=== PATIENT | female | born 1935 | race Caucasian/White ===

== ENCOUNTER 2017-05-31 12:57 | Emergency (ER) | payer MEDICARE, BC ==
--- NOTE | 2017-05-31 14:50 | EDM.PDOC ---
ED HPI GENERAL MEDICAL PROBLEM - General Chief Complaint: General Stated Complaint: pain in left rib area Time Seen by Provider: 05/31/17 14:30 Source of Information: Reports: Patient, Family History Limitations: Reports: No Limitations - History of Present Illness INITIAL COMMENTS - FREE TEXT/NARRATIVE: 81-year-old female with a left upper quadrant pain that's been waxing and waning for the past 3 days. No fevers or chills, bowels are moving. No pain with breathing, no recent trauma. Pain was worse this morning and seems to be much better now but still is present. She denies difficulty sleeping. Onset: Gradual (Over the past 3 days) Severity: Moderate Associated Symptoms: Denies: Fever/Chills, Headaches, Nausea/Vomiting, Shortness of Breath - Related Data Allergies Allergy/AdvReac Type Severity Reaction Status Date / Time Sulfa (Sulfonamide Allergy Nausea and Verified 12/29/13 09:26 Antibiotics) Vomiting Home Meds: Home Meds Hydrocodone/Acetaminophen [[place] 10-325] 1 tab PO Q4H PRN 12/29/13 [History] LORazepam [Ativan] 0.5 mg PO BID PRN 12/29/13 [History] Labetalol HCl [Trandate] 100 mg PO BID 12/29/13 [History] Polyethylene Glycol 3350 [MiraLAX] 17 gm PO DAILY 12/29/13 [History] Triamcinolone Acetonide [Kenalog 0.1% Crm] 0.1 percent TOP BID 12/29/13 [History ] Ascorbate Calcium [Vitamin C] 500 mg PO BID 02/12/14 [History] Ferrous Sulfate 325 mg PO BIDM 02/12/14 [History] Calcium Carbonate/Vitamin D3 [Calcium 600 + Vit D 200] 1 each PO BID 02/24/16 [ History] Escitalopram [Lexapro] 10 mg PO DAILY 02/24/16 [History] Fluticasone Propionate [Allergy Relief] 2 spray NS DAILY 02/24/16 [History] rOPINIRole [Requip] 2 mg PO BEDTIME 02/24/16 [History] Pantoprazole [Protonix] 40 mg PO DAILY #30 tab.cr 02/27/16 [Rx] Carvedilol 12.5 mg PO BID 05/31/17 [History] Chlorthalidone 12.5 mg PO DAILY 05/31/17 [History] Furosemide [Lasix] 20 mg PO DAILY 05/31/17 [History] amLODIPine/Benazepril [Lotrel 5-10 MG] 1 tab PO DAILY 05/31/17 [History] hydrOXYzine HCl [hydrOXYzine] 25 mg PO TID PRN 05/31/17 [History] Past Medical History HEENT History: Reports: Cataract, Other (See Below) Other HEENT History: wears glasses Cardiovascular History: Reports: Hypertension Respiratory History: Reports: Other (See Below) Other Respiratory History: allergies Gastrointestinal History: Reports: Other (See Below) Other Gastrointestinal History: colitis 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: Musculoskeletal History: Reports: Arthritis Psychiatric History: Reports: Anxiety, Depression Hematologic History: Reports: Anemia Oncologic (Cancer) History: Reports: Basal Cell Carcinoma - Past Surgical History HEENT Surgical History: Reports: Adenoidectomy, Naso-Sinus Surgery, Visual Female Surgical History: Reports: Hysterectomy Musculoskeletal Surgical History: Reports: Knee Replacement, Shoulder Surgery Social & Family History - Tobacco Use Smoking Status *Q: Never Smoker - Alcohol Use Days Per Week of Alcohol Use: 0 - Recreational Drug Use Recreational Drug Use: No ED ROS GENERAL - Review of Systems Review Of Systems: See Below Constitutional: Denies: Fever, Chills Respiratory: Denies: Shortness of Breath Cardiovascular: Denies: Chest Pain GI/Abdominal: Reports: Abdominal Pain, Constipation (Chronic from pain medication, takes MiraLAX and Colace) : Reports: Flank Pain (Left side) Musculoskeletal: Reports: Back Pain, Other (Patient has bilateral lower extremity edema which is symmetric) Skin: Reports: No Symptoms Psychiatric: Reports: No Symptoms ED EXAM, GENERAL - Physical Exam Exam: See Below Exam Limited By: No Limitations General Appearance: Alert, No Apparent Distress Eye Exam: Bilateral Eye: EOMI, Normal Inspection Respiratory/Chest: No Respiratory Distress, Lungs Clear, Other (some pain with palpation of left lateral lower chest and ribs) Cardiovascular: Regular Rate, Rhythm GI/Abdominal: Soft, Tender (left upper quad area some tenderness, no rebound tenderness) Extremities: Pedal Edema Neurological: Alert, Oriented, No Motor/Sensory Deficits Psychiatric: Anxious Skin Exam: Warm, Dry. No: Rash (no rash or bruising over painful area) Course - Vital Signs Last Recorded V/S: Last Vital Signs Temp 99.0 F 05/31/17 14:24 Pulse 64 05/31/17 15:28 Resp 18 05/31/17 15:28 BP 183/77 H 05/31/17 15:28 Pulse Ox 96 05/31/17 15:28 - Orders/Labs/Meds Orders: Active Orders 24 hr Category Date Time Status Abdomen Pelvis w Cont [CT] Stat Exams 05/31/17 15:34 Taken Labs: Laboratory Tests 05/31/17 05/31/17 05/31/17 Range/Units 15:02 15:02 15:02 WBC 5.9 (4.5-11.0) K/uL RBC 3.80 (3.30-5.50) M/uL Hgb 10.9 L D (12.0-15.0) g/dL Hct 32.4 L (36.0-48.0) % MCV 85 (80-98) fL MCH 29 (27-31) pg MCHC 34 (32-36) % Plt Count 350 (150-400) K/uL Neut % (Auto) 70 H (36-66) % Lymph % (Auto) 14 L (24-44) % [place] % (Auto) 11 H (2-6) % Eos % (Auto) 4 (2-4) % Baso % (Auto) 1 (0-1) % Sodium 130 L (140-148) mmol/L Potassium 4.2 (3.6-5.2) mmol/L Chloride 95 L (100-108) mmol/L Carbon Dioxide 33 H (21-32) mmol/L Anion Gap 6.2 (5.0-14.0) mmol/L BUN 19 H (7-18) mg/dL Creatinine 1.0 D (0.6-1.0) mg/dL Est Cr Clr Drug Dosing 31.69 mL/min Estimated GFR (MDRD) 53 L (>60) Glucose 100 (74-106) mg/dL Calcium 8.8 (8.5-10.1) mg/dL Total Bilirubin 0.2 (0.2-1.0) mg/dL AST 28 (15-37) U/L ALT 30 (12-78) U/L Alkaline Phosphatase 107 (46-116) U/L Total Protein 7.1 (6.4-8.2) g/dL Albumin 3.7 (3.4-5.0) g/dL Globulin 3.4 (2.3-3.5) g/dL Albumin/Globulin Ratio 1.1 L (1.2-2.2) Amylase 42 (25-115) U/L Lipase 115 (73-393) U/L Meds: Medications Discontinued Medications Generic Name Dose Route Start Last Admin Trade Name Freq PRN Reason Stop Dose Admin Hydrocodone Bitart/Acetaminophen 1 tab 05/31/17 16:24 05/31/17 16:32 [place] 325-10 Mg PO 05/31/17 16:25 1 tab ONETIME ONE Administration Sodium Chloride 81 mls @ 3 mls/sec 05/31/17 15:38 05/31/17 16:18 Normal Saline IV 05/31/17 15:39 3 mls/sec ONETIME ONE Administration Iopamidol 136 ml 05/31/17 15:45 05/31/17 16:18 Isovue-300 (61%) IV 150 ml . DIRECTED ASHLYN Administration Sodium Chloride 10 ml 05/31/17 15:38 05/31/17 16:18 Saline Flush FLUSH 10 ml ONETIME PRN Administration PER RADIOLOGY PROTOCOL Departure - Departure Time of Disposition: 17:34 Disposition: Home, Self-Care 01 Condition: Good Clinical Impression: Abdominal pain Qualifiers: Abdominal location: left upper quadrant Qualified Code(s): R10.12 - Left upper quadrant pain - Discharge Information Instructions: Abdominal Pain, Adult Referrals: Ger Parnell MD [Primary Care Provider] - Forms: ED Department Discharge Care Plan Goals: Continue current medications, increase diet and activity as tolerated. Consider rechecking in 2-3 days if symptoms persist or return sooner if worsening or concerns. - My Orders Last 24 Hours: My Active Orders 05/31/17 15:34 Abdomen Pelvis w Cont [CT] Stat - Assessment/Plan Last 24 Hours: My Active Orders 05/31/17 15:34 Abdomen Pelvis w Cont [CT] Stat
[2017-05-31 15:29] VITALS: BP 183/77
[2017-05-31] MEDS ORDERED: Sodium Chloride 0.9% 10 ML Syringe FLUSH PRN (15:38)
[2017-05-31] MEDS ORDERED: Iopamidol 612 MG/ML 150 ML Bottle IV SCH (15:45)
[2017-05-31] MEDS ORDERED: Acetaminophen/HYDROcodone 325-10 MG Tab PO ONE (16:24)
== END 2017-05-31 17:34 | disposition home or self-care (01) ==
LOC: JP.ED 12:57
DX: R10.12 Left upper quadrant pain (principal); I10 Essential (primary) hypertension; M19.90 Unspecified osteoarthritis, unspecified site; F41.9 Anxiety disorder, unspecified; F32.9 Major depressive disorder, single episode, unspecified; Z85.828 Personal history of other malignant neoplasm of skin; Z90.710 Acquired absence of both cervix and uterus; Z98.890 Other specified postprocedural states; Z96.659 Presence of unspecified artificial knee joint; Z79.899 Other long term (current) drug therapy; Z88.2 Allergy status to sulfonamides; Z90.49 Acquired absence of other specified parts of digestive tract
CPT/HCPCS: 36415; 74177; 80053; 82150; 83690; 85025; 99284; A9270; J7030; J7050

== ENCOUNTER 2017-11-26 07:32 | Day surgery (SDC) | payer MEDICARE, BC ==
[2017-11-26] MEDS ORDERED: Lactated Ringers 1,000 ML IV SCH (08:15)
[2017-11-26] MEDS ORDERED: Propofol 200 MG/20 ML SDV ONE ×2 (09:12→09:50)
[2017-11-26] MEDS ORDERED: fentaNYL 100 MCG/2 ML SDV ONE (09:12)
[2017-11-26 12:17] VITALS: BP 152/86
--- NOTE | 2017-11-29 08:04 | OR ---
DATE OF PROCEDURE: 11/26/2017 PREOPERATIVE DIAGNOSES: History of peptic ulcer disease, sensation of feeling full, anemia. POSTOPERATIVE DIAGNOSES: History of peptic ulcer disease, sensation of feeling full, hiatal hernia, mild gastritis, colonic diverticulosis, and anemia, etiology unknown. PROCEDURE: Esophagogastroduodenoscopy with antral biopsies for CLOtest, sent for pathology to look for Helicobacter pylori and colonoscopy to the cecum. SURGEON: Guido Gonzalez MD. ANESTHESIA: IV anesthesia with monitored anesthesia care. INDICATION: This 81-year-old white female is referred for upper and lower endoscopy. Indication for upper endoscopy is a history of peptic ulcer disease. She is taking a proton pump inhibitor. She complains of a feeling of always feeling full. Indication for colonoscopy includes anemia. I counseled her for upper and lower endoscopy with possible biopsy and/or polypectomy including risks and alternatives, and she gave her informed consent to proceed. DESCRIPTION OF PROCEDURE: The patient was placed in the left lateral decubitus position. IV anesthesia was administered by the Anesthesia Service. Time-out was held. The flexible video Olympus upper endoscope was passed through her mouth, down her esophagus, and into her stomach. The scope was easily passed through the pylorus into the duodenum reaching its third portion. The scope was then slowly withdrawn, examining the mucosa throughout. The duodenal mucosa appeared unremarkable. The scope was brought through the pylorus. There was some mild inflammation consistent with mild gastritis, despite being on a proton pump inhibitor. We obtained antral biopsies for CLOtest, sent for pathology to look for Helicobacter pylori. The scope was retroflexed. The proximal stomach appeared to have a hiatal hernia. The scope was straightened and brought up through the hiatal hernia. The GE junction appeared unremarkable. The scope was then brought up through the unremarkable appearing esophagus and was removed. Next, a rectal exam was performed, which was unremarkable. The flexible video Olympus colonoscope was introduced through her anus, up her rectum, out her colon all way to the cecum. To accomplish this, we did have to apply some abdominal compression. Once the cecum was reached, the scope was slowly withdrawn, examining the mucosa throughout. No mucosal abnormalities were noted until we reached the left colon. Here we saw a few scattered diverticula. There was no bleeding or inflammation associated with any of them. The scope was retroflexed in the rectum with the distal rectum appearing unremarkable. The scope was straightened and removed. She tolerated the procedure well. Guido Gonzalez MD /[id number]
== END 2017-11-26 11:45 | disposition home or self-care (01) ==
LOC: JP.SDS 07:32
PROVIDERS: ATTEND Surgery
DX: D64.9 Anemia, unspecified (principal); K29.50 Unspecified chronic gastritis without bleeding; K44.9 Diaphragmatic hernia without obstruction or gangrene; K57.30 Diverticulosis of large intestine without perforation or abscess without bleeding; I50.9 Heart failure, unspecified; K21.9 Gastro-esophageal reflux disease without esophagitis; N28.9 Disorder of kidney and ureter, unspecified; Z88.2 Allergy status to sulfonamides
CPT/HCPCS: 87081; 88305; J2704; J3010

== ENCOUNTER 2018-02-24 01:42 | Emergency (ER) | payer MEDICARE, BC ==
--- NOTE | 2018-02-24 02:59 | EDM.PDOC ---
ED HPI GENERAL MEDICAL PROBLEM - General Chief Complaint: Abdominal Pain Stated Complaint: [facility] Time Seen by Provider: 02/24/18 02:55 Source of Information: Reports: Patient, EMS History Limitations: Reports: No Limitations - History of Present Illness INITIAL COMMENTS - FREE TEXT/NARRATIVE: Pt arrived with upper abdomanal pain. She recently was constipated and she is taking miralax and is having daily bms. Onset: Other (Pt did become quite uncomfortable tonight. ) Duration: Hour(s): Location: Reports: Abdomen Associated Symptoms: Reports: Other (pt did not vomit. ) Treatments PRODUCTION HAND: Reports: Other (see below) Other Treatments PRODUCTION HAND: two lorazepam Abdomen Pain Score (Numeric/FACES): 4 - Related Data Allergies Allergy/AdvReac Type Severity Reaction Status Date / Time Sulfa (Sulfonamide Allergy Nausea and Verified 02/24/18 01:55 Antibiotics) Vomiting Home Meds: Home Meds Hydrocodone/Acetaminophen [[place] 10-325] 10 - 325 mg PO Q4H PRN 12/29/13 [ History] LORazepam [Ativan] 0.5 mg PO BID PRN 12/29/13 [History] Ascorbate Calcium [Vitamin C] 500 mg PO BID 02/12/14 [History] Ferrous Sulfate 325 mg PO BIDM 02/12/14 [History] Calcium Carbonate/Vitamin D3 [Calcium 600 + Vit D 200] 200 - 600 mg PO BID 02/23 [History] Escitalopram [Lexapro] 10 mg PO DAILY 02/24/16 [History] Fluticasone Propionate [Allergy Relief] 2 spray NS DAILY 02/24/16 [History] rOPINIRole [Requip] 2 mg PO BEDTIME 02/24/16 [History] Pantoprazole [Protonix] 40 mg PO DAILY #30 tab.cr 02/27/16 [Rx] Carvedilol 12.5 mg PO BID 05/31/17 [History] Furosemide [Lasix] 20 mg PO DAILY 05/31/17 [History] amLODIPine/Benazepril [Lotrel 5-10 MG] 5 - 10 mg PO DAILY 05/31/17 [History] hydrOXYzine HCl [hydrOXYzine] 25 mg PO TID PRN 05/31/17 [History] Acetaminophen [Tylenol] 650 mg PO Q6HR PRN 11/24/17 [History] Aspirin [Adult Low Dose Aspirin EC] 81 mg PO DAILY 11/24/17 [History] Clotrimazole/Betamethasone Dip [Lotrisone Cream] 1 film TOP BID 11/24/17 [ History] Fexofenadine [Makenna] 180 mg PO DAILY 11/24/17 [History] Sennosides/Docusate Sodium [Senna-Docusate Sodium Tablet] 1 tab PO BID 11/24/17 [History] Polyethylene Glycol 3350 [MiraLAX] 17 gm PO DAILY 02/24/18 [History] Simethicone [Gas Relief] 160 mg PO TID 02/24/18 [History] Past Medical History HEENT History: Reports: Cataract, Other (See Below) Other HEENT History: wears glasses Cardiovascular History: Reports: Hypertension Respiratory History: Reports: Pneumonia, Recurrent, Other (See Below) Other Respiratory History: allergies Gastrointestinal History: Reports: Gastritis, GERD, Other (See Below) Other Gastrointestinal History: colitis Genitourinary History: Reports: None [employer]IL [employer]ING [employer]QU[employer]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[employer]IC History: Reports: Endometriosis, Fibroids, , Spontaneous Musculoskeletal History: Reports: Back Pain, Chronic, Fracture, Osteoarthritis Neurological History: Reports: Migraines Psychiatric History: Reports: Anxiety, Depression, Panic Attack Endocrine/Metabolic History: Reports: Obesity/BMI 30+, Vitamin D Deficiency Hematologic History: Reports: Anemia Immunologic History: Reports: None Oncologic (Cancer) History: Reports: Basal Cell Carcinoma Dermatologic History: Reports: None - Infectious Disease History Infectious Disease History: Reports: Chicken Pox, Measles - Past Surgical History HEENT Surgical History: Reports: Adenoidectomy, Naso-Sinus Surgery, Visual Other HEENT Surgeries/Procedures: CA spots removed from removed Cardiovascular Surgical History: Reports: None Respiratory Surgical History: Reports: None GI Surgical History: Reports: Appendectomy, Colonoscopy, EGD Female Surgical History: Reports: Hysterectomy Endocrine Surgical History: Reports: None Neurological Surgical History: Reports: Other (See Below) Other Neurological Surgeries/Procedures: cement upper back #LOI Musculoskeletal Surgical History: Reports: Arthroscopic Knee, Joint Replacement , Knee Replacement, Shoulder Surgery Other Musculoskeletal Surgeries/Procedures:: partial knee replacement left and total knee on right, left ankle hardware Social & Family History - Family History Family Medical History: Noncontributory - Tobacco Use Smoking Status *Q: Never Smoker Second Hand Smoke Exposure: No - Caffeine Use Caffeine Use: Reports: Coffee - Recreational Drug Use Recreational Drug Use: No ED ROS GENERAL - Review of Systems Review Of Systems: See Below Constitutional: Reports: No Symptoms HEENT: Reports: No Symptoms Respiratory: Reports: No Symptoms Cardiovascular: Reports: No Symptoms Endocrine: Reports: No Symptoms GI/Abdominal: Reports: Abdominal Pain, Other (pt had pain accross the upper abdoman. She did pass alot of gas in the ambulance and since she has been here. ) : Reports: No Symptoms Musculoskeletal: Reports: No Symptoms Skin: Reports: No Symptoms Neurological: Reports: No Symptoms ED EXAM, GI/ABD - Physical Exam Exam: See Below Text/Narrative:: pt arrived with pain accross her upper abdoman. She had been passing alot of gas in the ambulance and did feel better. Exam Limited By: No Limitations General Appearance: Alert, Anxious, Moderate Distress Ears: Normal TMs Nose: Normal Inspection Throat/Mouth: Normal Inspection Head: Atraumatic Neck: Normal Inspection Respiratory/Chest: No Respiratory Distress Cardiovascular: Regular Rate, Rhythm GI/Abdominal Exam: Soft, Tender, Other (pt has some tenderness in the upper abdoman. ) (Female) Exam: Deferred Rectal (Female) Exam: Deferred Back Exam: Normal Inspection Extremities: Normal Inspection Neurological: Alert, Oriented, Normal Cognition Psychiatric: Normal Affect Course - Vital Signs Last Recorded V/S: Last Vital Signs Temp 36.7 C 02/24/18 01:48 Pulse 71 02/24/18 03:18 Resp 14 02/24/18 03:18 BP 157/76 H 02/24/18 03:18 Pulse Ox 92 L 02/24/18 03:18 - Orders/Labs/Meds Orders: Active Orders 24 hr Category Date Time Status Abdomen Series w Chest 1V [CR] Urgent Exams 02/24/18 02:34 Ordered CRP [C-REACTIVE PROTEIN] [CHEM] Stat Lab 02/24/18 02:33 Received UA W/MICROSCOPIC [URIN] Urgent Lab 02/24/18 02:22 Ordered Acetaminophen/HYDROcodone [[place] 325-10 MG] Med 02/24/18 03:26 Once 1 tab PO ONETIME ONE Medication Orders Hydrocodone Bitart/Acetaminophen ([place] 325-10 Mg) 1 tab PO ONETIME ONE Stop: 02/24/18 03:27 Labs: Laboratory Tests 02/24/18 02/24/18 02/24/18 Range/Units 02:22 02:33 02:33 WBC 7.9 (4.5-11.0) K/uL RBC 4.25 (3.30-5.50) M/uL Hgb 12.1 (12.0-15.0) g/dL Hct 36.7 (36.0-48.0) % MCV 86 (80-98) fL MCH 29 (27-31) pg MCHC 33 (32-36) % Plt Count 341 (150-400) K/uL Neut % (Auto) 81 H (36-66) % Lymph % (Auto) 8 L (24-44) % [place] % (Auto) 8 H (2-6) % Eos % (Auto) 3 (2-4) % Baso % (Auto) 0 (0-1) % Sodium 134 L (140-148) mmol/L Potassium 4.0 (3.6-5.2) mmol/L Chloride 97 L (100-108) mmol/L Carbon Dioxide 27 (21-32) mmol/L Anion Gap 14.0 (5.0-14.0) mmol/L BUN 18 (7-18) mg/dL Creatinine 1.0 (0.6-1.0) mg/dL Est Cr Clr Drug Dosing 34.30 mL/min Estimated GFR (MDRD) 53 L (>60) Glucose 108 H (74-106) mg/dL Calcium 9.1 (8.5-10.1) mg/dL Total Bilirubin 0.3 (0.2-1.0) mg/dL AST 18 (15-37) U/L ALT 21 (12-78) U/L Alkaline Phosphatase 89 (46-116) U/L Total Protein 6.8 (6.4-8.2) g/dL Albumin 3.9 (3.4-5.0) g/dL Globulin 2.9 (2.3-3.5) g/dL Albumin/Globulin Ratio 1.3 (1.2-2.2) Urine Color Yellow Urine Appearance Clear Urine pH 8.0 (4.5-8.0) Ur Specific [place] 1.010 (1.008-1.030) Urine Protein Negative (NEGATIVE) mg/dL Urine Glucose (UA) Normal (NEGATIVE) mg/dL Urine Ketones Negative (NEGATIVE) mg/dL Urine Occult Blood Negative (NEGATIVE) Urine Nitrite Negative (NEGATIVE) Urine Bilirubin Negative (NEGATIVE) Urine Urobilinogen Normal (NORMAL) mg/dL Ur Leukocyte Esterase Negative (NEGATIVE) Urine RBC 0-5 (0-5) Urine WBC 0-5 (0-5) Ur Epithelial Cells Rare Amorphous Sediment Not seen Urine Bacteria Rare Urine Mucus Not seen Meds: Medications Generic Name Dose Route Start Last Admin Trade Name Freq PRN Reason Stop Dose Admin Hydrocodone Bitart/Acetaminophen 1 tab 02/24/18 03:26 [place] 325-10 Mg PO 02/24/18 03:27 ONETIME ONE Discontinued Medications Generic Name Dose Route Start Last Admin Trade Name Freq PRN Reason Stop Dose Admin Magnesium Citrate 296 ml 02/24/18 03:18 Citrate Of Magnesia PO 02/24/18 03:19 ONETIME ONE - Re-Assessments/Exams Free Text/Narrative Re-Assessment/Exam: 02/24/18 03:14 pt has a clear urine. Her wbc is nornal. Her flat plate of the abdoman shows a fair amount of stool. her crp was .22 02/24/18 03:20 02/24/18 03:28 Departure - Departure Time of Disposition: 03:20 Disposition: Home, Self-Care 01 Condition: Fair Clinical Impression: Constipation, Chronic back pain - Discharge Information Referrals: PCP,None [Primary Care Provider] - Forms: ED Department Discharge Care Plan Goals: Use the mag citrate when she gets home, cont with the miralax. Suggest her getting the shots for her back to relief her back pain. If persistent abdomanal pain would suggest a cat scan of the abdoman. - My Orders Last 24 Hours: My Active Orders 02/24/18 02:22 UA W/MICROSCOPIC [URIN] Urgent 02/24/18 02:33 CRP [C-REACTIVE PROTEIN] [CHEM] Stat 02/24/18 02:34 Abdomen Series w Chest 1V [CR] Urgent 02/24/18 03:26 Acetaminophen/HYDROcodone [[place] 325-10 MG] 1 tab PO ONETIME ONE - Assessment/Plan Last 24 Hours: My Active Orders 02/24/18 02:22 UA W/MICROSCOPIC [URIN] Urgent 02/24/18 02:33 CRP [C-REACTIVE PROTEIN] [CHEM] Stat 02/24/18 02:34 Abdomen Series w Chest 1V [CR] Urgent 02/24/18 03:26 Acetaminophen/HYDROcodone [[place] 325-10 MG] 1 tab PO ONETIME ONE
[2018-02-24] MEDS ORDERED: Magnesium Citrate Solution 296 ML Bottle PO ONE (03:18)
[2018-02-24] MEDS ORDERED: Acetaminophen/HYDROcodone 325-10 MG Tab PO ONE (03:26)
[2018-02-24 03:39] VITALS: BP 157/78
--- NOTE | 2018-02-24 09:36 | CR ---
Abdomen Series w Chest 1V CLINICAL HISTORY: Abdominal pain FINDINGS: There is a right cardiac density consistent with a hiatal hernia. There is some patchy airs pace disease at the left lung base. No free air is identified. There is moderate retained stool throu ghout the colon. Small intestinal gas pattern is nonacute. There is a tiny left paraspinal calcific d ensity near the L3 transverse process. This is not the seen on the upright film. This may be artifact IMPRESSION: Large hiatal hernia. Patchy left basilar density may represent some atelectasis Moderate retained stool Nonacute intestinal gas pattern
== END 2018-02-24 03:58 | disposition home or self-care (01) ==
LOC: JP.ED 01:42
DX: K59.00 Constipation, unspecified (principal); G89.29 Other chronic pain; M54.9 Dorsalgia, unspecified; I10 Essential (primary) hypertension; Z88.2 Allergy status to sulfonamides; Z79.899 Other long term (current) drug therapy; Z79.82 Long term (current) use of aspirin
CPT/HCPCS: 36415; 74022; 80053; 81001; 85025; 86140; 99284; A9270